=== PATIENT | male | born 1975 | race Hispanic/Latino ===

== ENCOUNTER 2020-10-18 06:05 | Emergency (ER) | payer BC, OTHER ==
[2020-10-18] MEDS ORDERED: Acetaminophen 500 MG TAB ONE (06:49)
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
== END 2020-10-18 07:58 | disposition home or self-care (01) ==
LOC: ERS 06:05
DX: S16.1XXA Strain of muscle, fascia and tendon at neck level, initial encounter (principal); E11.9 Type 2 diabetes mellitus without complications; E78.5 Hyperlipidemia, unspecified; F17.210 Nicotine dependence, cigarettes, uncomplicated; V43.52XA Car driver injured in collision with other type car in traffic accident, initial encounter
CPT/HCPCS: 72125